=== PATIENT | female | born 1955 | race Caucasian/White ===

== ENCOUNTER 2023-10-20 10:03 | Outpatient (CLI) | payer MEDICARE, SELFPAY | END 2023-10-20 10:04 | disposition home or self-care (01) | PROVIDERS: PCP Family Medicine; Visit Provider Surgery | DX: L89.812 Pressure ulcer of head, stage 2 (principal); L89.103 Pressure ulcer of unspecified part of back, stage 3; E11.40 Type 2 diabetes mellitus with diabetic neuropathy, unspecified; G47.33 Obstructive sleep apnea (adult) (pediatric); E66.01 Morbid (severe) obesity due to excess calories; Z68.43 Body mass index [BMI] 50.0-59.9, adult; Z79.4 Long term (current) use of insulin | CPT/HCPCS: 97597; G0463 ==

== ENCOUNTER 2023-10-27 09:32 | Outpatient (CLI) | payer MEDICARE, SELFPAY | END 2023-10-27 09:33 | disposition home or self-care (01) | PROVIDERS: PCP Family Medicine; Visit Provider Surgery | DX: L89.812 Pressure ulcer of head, stage 2 (principal); E11.40 Type 2 diabetes mellitus with diabetic neuropathy, unspecified; Z79.4 Long term (current) use of insulin | CPT/HCPCS: 97597 ==

== ENCOUNTER 2023-11-10 11:26 | Outpatient (CLI) | payer MEDICARE, SELFPAY | END 2023-11-10 11:27 | disposition home or self-care (01) | LOC: WOUND 11:26 | PROVIDERS: PCP Family Medicine; Visit Provider Surgery | DX: L89.103 Pressure ulcer of unspecified part of back, stage 3 (principal) | CPT/HCPCS: 97597 ==

== ENCOUNTER 2023-11-17 11:17 | Outpatient (CLI) | payer MEDICARE, SELFPAY | END 2023-11-17 11:18 | disposition home or self-care (01) | LOC: WOUND 11:17 | PROVIDERS: PCP Family Medicine; Visit Provider Surgery | DX: L89.103 Pressure ulcer of unspecified part of back, stage 3 (principal) | CPT/HCPCS: 97597 ==

== ENCOUNTER 2023-11-24 11:27 | Outpatient (CLI) | payer MEDICARE, SELFPAY | END 2023-11-24 11:28 | disposition home or self-care (01) | LOC: WOUND 11:28 | PROVIDERS: PCP Family Medicine; Visit Provider Surgery | DX: L89.813 Pressure ulcer of head, stage 3 (principal); L89.103 Pressure ulcer of unspecified part of back, stage 3; E11.40 Type 2 diabetes mellitus with diabetic neuropathy, unspecified; G47.33 Obstructive sleep apnea (adult) (pediatric); Z99.89 Dependence on other enabling machines and devices; Z79.4 Long term (current) use of insulin | CPT/HCPCS: 11042 ==

== ENCOUNTER 2023-12-01 11:32 | Outpatient (CLI) | payer MEDICARE, SELFPAY | END 2023-12-01 11:33 | disposition home or self-care (01) | LOC: WOUND 11:32 | PROVIDERS: PCP Family Medicine; Visit Provider Surgery | DX: L89.103 Pressure ulcer of unspecified part of back, stage 3 (principal); E11.40 Type 2 diabetes mellitus with diabetic neuropathy, unspecified; Z79.4 Long term (current) use of insulin | CPT/HCPCS: 97597 ==

== ENCOUNTER 2023-12-15 11:29 | Outpatient (CLI) | payer MEDICARE, SELFPAY | END 2023-12-15 11:30 | disposition home or self-care (01) | LOC: WOUND 11:29 | PROVIDERS: PCP Family Medicine; Visit Provider Surgery | DX: L89.813 Pressure ulcer of head, stage 3 (principal); L89.103 Pressure ulcer of unspecified part of back, stage 3; E11.40 Type 2 diabetes mellitus with diabetic neuropathy, unspecified; G47.33 Obstructive sleep apnea (adult) (pediatric); Z99.89 Dependence on other enabling machines and devices | CPT/HCPCS: G0463 ==